=== PATIENT | male | born 1970 ===

== ENCOUNTER 2024-09-01 06:18 | Day surgery (SDC) | payer OTHER, SELFPAY | END 2024-09-01 09:23 | disposition home or self-care (01) | LOC: GI 06:18 | PROVIDERS: ATTENDING PHYSICIAN Surgery | DX: Z12.11 Encounter for screening for malignant neoplasm of colon (principal); K63.5 Polyp of colon; D12.3 Benign neoplasm of transverse colon; D12.0 Benign neoplasm of cecum; K57.30 Diverticulosis of large intestine without perforation or abscess without bleeding; Z80.0 Family history of malignant neoplasm of digestive organs; D12.5 Benign neoplasm of sigmoid colon | CPT/HCPCS: 45380; 45385; 88305 ==